=== PATIENT | male | born 1975 | race African-American/Black ===

== ENCOUNTER 2022-12-23 14:18 | Emergency (ER) | payer BC ==
--- OUTSIDE RECORDS SUMMARY | 2022-12-23 14:21 | XMS REPORT | Continuity of Care Document ---
:1975 Author Organization [facility] t Address [facility] [place] [address] Care Team Providers Name Role Phone Alfonso Barker Nataliya Primary Care Physician Pepper Attending Clinician Unavailable ELISE PHILIPPE Attending Clinician Unavailable Elise Curry Attending Clinician Only, Ang Db Test Attending Clinician Unavailable Celso Wilde MD Attending Clinician CELSO WILDE Attending Clinician Unavailable Doctor Unassigned, [place] Attending Clinician Unavailable ALEX CRENSHAW Attending Clinician Unavailable MITALI ALFORD Attending Clinician Unavailable Pepper Admitting Clinician Unavailable ELISE PHILIPPE Admitting Clinician Unavailable Payers Payer Name Policy Type Policy Number Effective Date Expiration Date S [facility] [id number] 2020 00:00:00 Problems Condition Condition Condition Status Onset Resolution Last Treating Co mments Source Name Details Category Date Date Treatment Clinician Date No known No known Disease Unive rs active active ity of problems problems [facility] Allergies, Adverse Reactions, Alerts Allergy Allergy Status Severity Reaction(s) Onset Inactive Treating Comm ents Source Name Type Date Date Clinician Lucius Williamson Active Swelling 2020-0 Univ ers h ty to 11-20 ity of Derived adverse 00:00: [place] reaction 00 Medical s Branch Shrimp Propensi Active Hives Univers ty to 11-20 ity of adverse 00:00: [place] reaction 00 Medical s Branch SHELLFIS DRUG Active Swelling Univer s H INGREDI 11-20 ity of DERIVED 00:00: [place] 00 Medical Branch SHRIMP DRUG Active Hives Univers INGREDI 11-20 ity of 00:00: [place] 00 Medical Branch Social History Social Habit Start Date Stop Date Quantity Comments Source Exposure to Not sure [facility] SARS-CoV-2 (event) Medica l Branch Tobacco use and 2019-11-20 2019-11-20 Never used [facility] exposure 00:00:00 00:00:00 Medical Branch Sex Assigned At [birth year] [facility] 00:00:00 00:00:00 Medical Branch Smoking Status Start Date Stop Date Source Unknown if ever smoked [facility] Never smoker [facility] Medications Ordered Filled Start Stop Current Ordering Indication Dosage Frequency Signature Comments Components Source Medication Medication Date Date Medication? Clinician (SIG) Name Name ibuprofen No 600mg 600 mg, Uni vers (IBU) 12-28 Oral, ity of tablet 600 01:00: 00:09 ONCE, 1 Dionte as mg 00 :00 dose, On Medical 12/27/21 Branch at 1900, FABIANO ibuprofen Yes [id number] 600mg Take 1 Univers 600 mg 12-27 9107 tablet by ity of tablet 00:00: mouth [place] 00 every 6 Medical (six) Branch hours as needed for Pain (scale 4-6). No known [facility] Vital Signs Vital Name Observation Time Observation Value Comments Source Systolic blood 2021-12-27 23:26:00 136 mm[Hg] Univer sity of pressure [facility] Diastolic blood 2021-12-27 23:26:00 87 mm[Hg] Unive rsity of [facility] Heart rate 2021-12-27 23:26:00 102 /min Universi ty [facility] Body temperature 2021-12-27 23:25:00 36.56 Caren Univ ersity of [facility] Respiratory rate 2021-12-27 23:25:00 18 /min [facility] Body height 2021-12-27 23:25:00 190.5 cm [facility] Body weight 2021-12-27 23:25:00 142.883 kg [facility] BMI 2021-12-27 23:25:00 39.37 kg/m2 [facility] Oxygen saturation in 2021-12-27 23:25:00 97 /min [facility] blood by [facility] Pulse oximetry [place] Procedures Procedure Date / Time Performed Performing Clinician Sourc e XR FOOT 3+ VW RIGHT 2021-12-28 00:04:06 Elise Philippe [facility] NOTICE OF PRIVACY 2021-12-27 23:14:15 Doctor Unassigned, No [facility] PRACTICES Name [facility] CONSENT/REFUSAL FOR 2021-12-27 23:14:03 Doctor Unassigned, No [facility] DIAGNOSIS AND Name [facility] TREATMENT Encounters Start End Encounter Admission Attending Care Care Encounter Source Date/Time Date/Time Type Type Clinicians Facility Department ID 2022-04-26 2022-04-26 Outpatient FOG_Fukuda_ AOSM AOSM [id number] Igll 05:57:00 05:57:00 Ethan [id number] Orth ope dic Sports Medicin e 2021-12-27 2021-12-27 Emergency X [facility] ERT [id number] Univers 17:26:00 19:18:00 ELISE soriano [facility] 2021-12-27 2021-12-27 Emergency [facility] [id number] Univers 17:26:00 19:18:00 Elise GRISSOM [id number] i ty of [place] [id number] [place] [id number] [place] [id number] Branch 2021-07-13 2021-07-13 Laboratory Only, Ang Db Test [facility] 1.2.8 [id number] [id number] Univers 17:10:30 17:20:30 Only [facility] [id number] ity of [place] [id number] [place]te as Waqar[place]le[place] [id number] [place] [address] Medical Office Building 2021-07-13 2021-07-13 Outpatient Nancie WILDE [facility] [id number] Univers 17:20:00 17:20:00 CELSO soriano [facility] 2021-07-13 2021-07-13 Orders Doctor VANESSA [id number] Univers 00:00:00 00:00:00 Only Unassigned, INEZ [id number] ity of [place] [facility] [id number] Dionte as [id number] [address] 2020-06-24 2020-06-24 Outpatient Nancie CRENSHAW [facility] [id number] Univers 08:20:00 08:20:00 ALEX soriano [facility] 2019-11-20 2019-11-20 Emergency X [facility] ERT [id number] Univers 17:51:51 19:31:00 MITALI soriano [facility] Results This patient has no known results.
[2022-12-23 15:06] LABS: Urine Blood Trace-intact (Negative); Urine Glucose Negative (Negative); Urine Protein Negative (Negative); Urine pH 6.5 (5.0-7.0)
[2022-12-23 15:17] LABS: Specific Gravity 1.018 (1.005-1.030); Urine Bilirubin NEGATIVE (Negative); Urine Blood Negative (Negative); Urine Clarity Clear (Clear); Urine Color Light-Yellow (Yellow); Urine Glucose NEGATIVE (Negative); Urine Protein NEGATIVE (Negative); Urine Urobilinogen Normal (Normal); Urine pH 6.5 (5.0-7.0)
--- NOTE | 2022-12-23 15:40 | RAD REPORT ---
EXAM DESCRIPTION: CT - Stone Protocol - 12/23/2022 3:28 pm CLINICAL HISTORY: Abdominal pain. Hematuria COMPARISON: None. TECHNIQUE: Computed axial tomography of the abdomen pelvis was obtained without oral or IV contrast. Lack of IV and oral contrast limits evaluation of solid organs, appendix, bowel, and vessels. Machado l reformatted images were obtained and reviewed. All CT scans are performed using dose optimization technique as appropriate and may include automated exposure control or mA/KV adjustment according to patient size. FINDINGS: A renal calculus is not seen. An ureteral calculus is not noted. A bladder calculus is not present. No hydronephrosis The liver, spleen, pancreas and adrenals appear grossly normal There is no evidence of diverticulitis. The appendix appears normal Small to moderate umbilical hernia IMPRESSION: Negative for a genitourinary calculus
--- NOTE | 2022-12-23 15:47 | EDPHYS ---
Physician Documentation [facility] Name: Oneil Alvarado Age: 47 yrs Sex: Male : 1975 Arrival Date: 12/23/2022 Time: 14:21 Bed IW1 Private MD: ED Physician Bennie Chen HPI: 12/23 14:49 This 47 yrs old Black Male presents to ER via Ambulatory with complaints of Possible sb4 Kidney Stone. 14:49 Onset: The symptoms/episode began/occurred 1 month(s) ago. sb4 14:51 The patient presents with urinary symptoms, states his urinary stream has not been as sb4 consistent as usual. Modifying factors: The symptoms are alleviated by nothing, the symptoms are aggravated by nothing. Associated signs and symptoms: Pertinent positives: hematuria, left groin pain, left flank pain. The patient has not experienced similar symptoms in the past. Patient reports he has had blood at the initiation of his urinary stream for about 1 month now associated with a fluctuation in his urine stream rate. He reports some groin pain and flank pain on the left. He denies history of nephrolithiasis or any known history of BPH. . Historical: - Allergies: 14:44 No Known Allergies; ko1 - PMHx: 14:44 None; ko1 - Immunization history:: Adult Immunizations up to date. - Social history:: Smoking status: Patient denies any tobacco usage or history of. ROS: 14:51 Constitutional: Negative for fever, chills, and weight loss, Eyes: Negative for injury, sb4 pain, redness, and discharge, ENT: Negative for injury, pain, and discharge, Cardiovascular: Negative for chest pain, palpitations, and edema, Respiratory: Negative for shortness of breath, cough, wheezing, and pleuritic chest pain, Abdomen/GI: Negative for abdominal pain, nausea, vomiting, diarrhea, and constipation, Back: Negative for injury and pain, MS/Extremity: Negative for injury and deformity, Skin: Negative for injury, rash, and discoloration. 14:51 : Positive for hematuria, difficulty urinating, Negative for urinary frequency, burning with urination, foul smelling urine, penile discharge, testicular pain Exam: 16:13 Constitutional: This is a well developed, well nourished patient who is awake, alert, sb4 and in no acute distress. Head/Face: Normocephalic, atraumatic. Eyes: Extra-ocular motions intact. Periorbital areas with no swelling, redness, or edema. ENT: Mucous membranes moist. Cardiovascular: Regular rate and rhythm with a normal S1 and S2. Respiratory: No increased work of breathing, no retractions or nasal flaring. Abdomen/GI: Soft, non-tender, no distension. Back: No spinal tenderness. No costovertebral tenderness. Full range of motion. Male : Normal genitalia with no discharge or lesions. EVANGELINA Calzada present for exam. Skin: Warm, dry with normal turgor. Normal color with no rashes, no lesions, and no evidence of cellulitis. MS/ Extremity: Pulses equal, no cyanosis. Neurovascular intact. Full, normal range of motion. Vital Signs: 14:42 BP 131 / 78; Pulse 99; Resp 18; Temp 98.3; Pulse Ox 99% ; Weight 136.98 kg; Height 6 ko1 ft. 3 in. (190.50 cm); Pain 2/10; 14:42 Body Mass Index 37.75 (136.98 kg, 190.50 cm) ko1 MDM: 14:47 Patient medically screened. sb4 16:14 Differential diagnosis: UTI, urinary retention, prostatitis, BPH, nephrolithiasis. Data sb4 reviewed: vital signs, nurses notes, lab test result(s), urinalysis, hematuria, radiologic studies, CT scan, and as a result, I will discharge patient. 12/23 14:48 Order name: Urinalysis; Complete Time: 15:18 sb4 12/23 15:06 Order name: Urine Dipstick-Ancillary; Complete Time: 15:08 EDMS 12/23 14:48 Order name: Urine Dipstick-Ancillary (obtain specimen); Complete Time: 15:05 sb4 12/23 15:08 Order name: CT Stone Protocol; Complete Time: 15:41 sb4 Administered Medications: No medications were administered Disposition: 12/24 07:15 Co-signature as Attending Physician, Bennie Chen MD I reviewed the patient's care rn provided by the Advanced Practice Provider and agree with the diagnosis and treatment plan. Disposition Summary: 12/23/22 15:46 Discharge Ordered Location: Home sb4 Problem: an ongoing problem sb4 Symptoms: are unchanged sb4 Condition: Stable sb4 Diagnosis - Enlarged prostate with lower urinary tract symptoms sb4 Followup: sb4 - With: Chong De Dios MD - When: 2 - 3 days - Reason: Further diagnostic work-up, Recheck today's complaints, Re-evaluation by your physician Discharge Instructions: - Discharge Summary Sheet sb4 - Benign Prostatic Hyperplasia sb4 Forms: - Medication Reconciliation Form sb4 - Thank You Letter sb4 - Antibiotic Education sb4 - Prescription Opioid Use sb4 Signatures: Dispatcher [employer] EDMS Bennie Chen MD MD rn Oliver, Kathy, RN RN Delores Donahue PA-C PA-C sb4 Corrections: (The following items were deleted from the chart) 12/23 15:31 14:49 Associated signs and symptoms: Pertinent positives: sb4 sb4 15:31 14:49 This 47 yrs old Black Male presents to ER via Ambulatory with complaints of sb4 Possible Kidney Stone. sb4 16:13 16:13 Constitutional: This is a well developed, well nourished patient who is awake, sb4 alert, and in no acute distress. Head/Face: Normocephalic, atraumatic. Eyes: Extra-ocular motions intact. Periorbital areas with no swelling, redness, or edema. ENT: Mucous membranes moist. Cardiovascular: Regular rate and rhythm with a normal S1 and S2. Respiratory: Lungs have equal breath sounds bilaterally, clear to auscultation and percussion. No rales, rhonchi or wheezes noted. No increased work of breathing, no retractions or nasal flaring. Abdomen/GI: Soft, non-tender, no distension. Back: No spinal tenderness. No costovertebral tenderness. Full range of motion. Male : Normal genitalia with no discharge or lesions. EVANGELINA Calzada present for exam. Skin: Warm, dry with normal turgor. Normal color with no rashes, no lesions, and no evidence of cellulitis. MS/ Extremity: Pulses equal, no cyanosis. Neurovascular intact. Full, normal range of motion. sb4
--- NOTE | 2022-12-23 15:47 | ER ---
Nurse's Notes [facility] Name: Oneil Alvarado Age: 47 yrs Sex: Male : 1975 Arrival Date: 12/23/2022 Time: 14:21 Bed IW1 Private MD: Diagnosis: Enlarged prostate with lower urinary tract symptoms Presentation: 12/23 14:42 Chief complaint: Patient states: I feel like I have a kidney stone, there is less force ko1 when I pee, like the stream is not as strong. Some pain in the left groin and left flank. Coronavirus screen: At this time, the client does not indicate any symptoms associated with coronavirus-19. Ebola Screen: No symptoms or risks identified at this time. Initial Sepsis Screen: Does the patient meet any 2 criteria? No. Patient's initial sepsis screen is negative. Does the patient have a suspected source of infection? No. Patient's initial sepsis screen is negative. Risk Assessment: Do you want to hurt yourself or someone else? Patient reports no desire to harm self or others. Onset of symptoms was December 23, 2022. 14:42 Method Of Arrival: Ambulatory ko1 14:42 Acuity: BELTRAN 4 ko1 Triage Assessment: 14:44 General: Appears in no apparent distress. comfortable, Behavior is calm, cooperative, ko1 appropriate for age. Pain: Complains of pain in left low back. GI: No deficits noted. Historical: - Allergies: 14:44 No Known Allergies; ko1 - PMHx: 14:44 None; ko1 - Immunization history:: Adult Immunizations up to date. - Social history:: Smoking status: Patient denies any tobacco usage or history of. Screenin:00 [facility] ED Fall Risk Assessment (Adult) History of falling in the last 3 months, ko1 including since admission No falls in past 3 months (0 pts) Confusion or Disorientation No (0 pts) Intoxicated or Sedated No (0 pts) Impaired Gait No (0 pts) Mobility Assist Device Used No (0 pt) Altered Elimination No (0 pt) Score/Fall Risk Level 0 - 2 = Low Risk Oriented to surroundings, Maintained a safe environment, Educated pt \T\ family on fall prevention, incl call for assistance when getting out of bed, Assessed \T\ reinforced patient's understanding of fall precautions, Provided non-skid footwear, Hourly rounding (assess needs \T\ fall precautionary measures) done, Used ambulatory aids as needed (educated on \T\ assisted with), Used gait belt as appropriate. Abuse screen: Denies threats or abuse. Denies injuries from another. Nutritional screening: No deficits noted. Tuberculosis screening: No symptoms or risk factors identified. Assessment: 15:00 General: Appears in no apparent distress. comfortable, Behavior is calm, cooperative, ko1 appropriate for age. Pain: Complains of pain in back and left low back and pelvis and left femoral area. Neuro: No deficits noted. Cardiovascular: No deficits noted. Respiratory: No deficits noted. GI: No deficits noted. Bowel sounds present X 4 quads. Abd is soft and non tender X 4 quads. : Reports pain. EENT: No deficits noted. Derm: No deficits noted. Musculoskeletal: No deficits noted. Vital Signs: 14:42 BP 131 / 78; Pulse 99; Resp 18; Temp 98.3; Pulse Ox 99% ; Weight 136.98 kg; Height 6 ko1 ft. 3 in. (190.50 cm); Pain 2/10; 14:42 Body Mass Index 37.75 (136.98 kg, 190.50 cm) ko1 ED Course: 14:21 Patient arrived in ED. as 14:31 Delores Mcdonald PA-C is PHCP. sb4 14:31 Bennie Chen MD is Attending Physician. sb4 14:44 Triage completed. ko1 14:44 Arm band placed on left wrist. Patient placed in waiting room, Patient notified of wait ko1 time. 15:00 Patient has correct armband on for positive identification. ko1 15:00 No provider procedures requiring assistance completed. Patient did not have IV access ko1 during this emergency room visit. 15:05 Urinalysis Sent. ko1 15:30 CT Stone Protocol In Process Unspecified. EDMS 15:45 Chong De Dios MD is Referral Physician. sb4 Administered Medications: No medications were administered Medication: 15:00 VIS not applicable for this client. ko1 Outcome: 15:00 Discharged to home ambulatory. ko1 15:00 Condition: stable 15:00 Discharge instructions given to patient, Instructed on discharge instructions, Demonstrated understanding of instructions. 15:46 Discharge ordered by . sb4 15:58 Patient left the ED. ko1 Signatures: Dispatcher [employer] Geneva Waite Kathy, RN RN ko1 Delores Mcdonald PA-C PA-C sb4
[2022-12-23 16:03] VITALS: BP 131/78; TEMP 98.3; O2SAT 99
== END 2022-12-23 15:58 | disposition home or self-care (01) ==
LOC: ER 14:18
DX: N40.1 Benign prostatic hyperplasia with lower urinary tract symptoms (principal)
CPT/HCPCS: 74176; 76377; 81003; 99283

== ENCOUNTER 2023-07-17 08:08 | Emergency (ER) | payer BC ==
--- OUTSIDE RECORDS SUMMARY | 2023-07-17 08:10 | XMS REPORT | Continuity of Care Document ---
:1975 Author Organization [facility] t Address [address] [place] [address] [place] [address] Care Team Providers Name Role Phone PCP, PATIENT DOES NOT HAVE A Primary Care Physician Unavaila juan a [place] Attending Clinician Unavailable Elise Curry Attending Clinician ELISE PHILIPPE Attending Clinician Unavailable Only, Ang Db Test Attending Clinician Unavailable Celso Wilde MD Attending Clinician CELSO WILDE Attending Clinician Unavailable Doctor Unassigned, [place] Attending Clinician Unavailable ALEX CRENSHAW Attending Clinician Unavailable MITALI ALFORD Attending Clinician Unavailable Pepper Admitting Clinician Unavailable ELISE PHILIPPE Admitting Clinician Unavailable Payers Payer Name Policy Type Policy Number Effective Date Expiration Date S ource Problems Condition Condition Condition Status Onset Resolution Last Treating Co mments Source Name Details Category Date Date Treatment Clinician Date No known No known Disease Unive rs active active ity of problems problems [facility] Allergies, Adverse Reactions, Alerts Allergy Allergy Status Severity Reaction(s) Onset Inactive Treating Comm ents Source Name Type Date Date Clinician Lucius Williamson Active Swelling Univ ers h ty to 11-20 ity [...] Quantity Comments Source Exposure to Not sure [facility] SARS-CoV-2 (event) Medica l Branch Tobacco use and 2019-11-20 2019-11-20 Never used [facility] exposure 00:00:00 00:00:00 Medical Branch Sex Assigned At [birth year] [facility] 00:00:00 00:00:00 Medical Branch Smoking Status Start Date Stop Date Source Unknown if ever smoked [facility] Never smoker [facility] Medications Ordered Filled Start Stop Current Ordering Indication Dosage Frequency Signature Comments Components Source Medication Medication Date Date Medication? Clinician (SIG) Name Name ibuprofen 600mg 600 mg, Uni vers (IBU) 12-28 Oral, ity of tablet 600 01:00: 00:09 ONCE, 1 Dionte as mg 00 :00 dose, On Medical 12/27/21 Branch at 1900, FABIANO ibuprofen Yes [id number] 600mg Take 1 Univers 600 mg 12-27 9107 tablet by ity of tablet 00:00: mouth [place] 00 every 6 Medical (six) Branch hours as needed for Pain (scale 4-6). No known No [facility] Vital Sign[facility] Vital Name Observation Time Observation Value Comments Source Systolic blood 2021-12-27 23:26:00 136 mm[Hg] Univer sity of pressure [facility] Diastolic blood 2021-12-27 23:26:00 87 mm[Hg] Unive rsity of [facility] Heart rate 2021-12-27 23:26:00 102 /min [facility] Body temperature 2021-12-27 23:25:00 36.56 Caren [facility] Respiratory rate 2021-12-27 23:25:00 18 /min [facility] Body height 2021-12-27 23:25:00 190.5 cm [facility] Body weight 2021-12-27 23:25:00 142.883 kg [facility] BMI 2021-12-27 23:25:00 39.37 kg/m2 [facility] Oxygen saturation in 2021-12-27 23:25:00 97 /min [facility] Arterial blood by [facility] Pulse oximetry Branch Procedures Procedure Date / Time Performed Performing Clinician John montalvo XR FOOT 3+ VW RIGHT 2021-12-28 00:04:06 Elise Philippe [facility] NOTICE OF PRIVACY 2021-12-27 23:14:15 Doctor Unassigned, No [facility] PRACTICES Name [facility] [place] CONSENT/REFUSAL FOR 2021-12-27 23:14:03 Doctor Unassigned, No [facility] DIAGNOSIS AND Name [facility] TREATMENT Encounters Start End Encounter Admission Attending Care Care Encounter Source Date/Time Date/Time Type Type Clinicians Facility Department ID 2023-02-23 Outpatient [facility] [id number] Common 09:25:04 [id number] [facility] 2022-04-26 2022-04-26 Outpatient FOG_Fukuda_ AOSM AOSM [id number] [place] 05:57:00 05:57:00 Ethan [id number] Orth ope dic Sports Medicin e 2021-12-27 2021-12-27 Emergency [facility] [id number] Univers 17:26:00 19:18:00 Elise GRISSOM [id number] i ty [facility] [id number] [facility] [id number] [facility] 084 Branch 2021-12-27 2021-12-27 Emergency X DENAE [facility] ERT [id number] Univers 17:26:00 19:18:00 ELISE soriano [facility] 2021-07-13 2021-07-13 Laboratory Only, Ang Db Test [facility] 1.2.8 40.114 [id number] Univers 17:10:30 17:20:30 Only Song, [facility] [id number] ity of [place] [id number] Dionte as Waqar?Blea [id number] Ct [place] [address] Medical Office Building 2021-07-13 2021-07-13 [facility] [id number] Univers 17:20:00 17:20:00 CELSO [facility] 2021-07-13 2021-07-13 Orders Doctor MENDEZ [id number] Univers 00:00:00 00:00:00 Only Unassigned, INEZ [id number] ity of [place] [facility] [id number] Dionte as [id number] [address] 2020-06-24 2020-06-24 [facility] [id number] Univers 08:20:00 08:20:00 ALEX soriano [facility] 2019-11-20 2019-11-20 Emergency [facility] [id number] Univers 17:51:51 19:31:00 MITALI soriano [facility] Results This patient has no known results.
[2023-07-17] MEDS ORDERED: TETRACAINE HCL 0.5% 4ML OPTH ONE (08:49)
[2023-07-17] MEDS ORDERED: FLUORESCEIN SODIUM 1 MG/WRAP ONE (08:52)
--- NOTE | 2023-07-17 09:24 | EDPHYS ---
Physician Documentation [facility] Name: Oneil Alvarado Age: 48 yrs Sex: Male : 1975 Arrival Date: 07/17/2023 Time: 08:08 Bed 15 Private MD: ED Physician Bennie Chen HPI: 07/17 08:30 This 48 yrs old Black Male presents to ER via Ambulatory with complaints of Eye cp Swelling - Right. 08:30 The patient is experiencing redness, swelling. Onset: The symptoms/episode cp began/occurred this morning. Duration: the symptoms are continuous. 08:30 Associated signs and symptoms: Pertinent negatives: ear ache, fever, headache. cp 08:30 Patient wears glasses. Severity of symptoms: in the emergency department the symptoms cp are unchanged despite home interventions. Historical: - Allergies: 08:19 SHELLFISH; rs5 - PMHx: 08:19 None; rs5 - PSHx: 08:19 None; rs5 - Immunization history:: Adult Immunizations up to date. - Social history:: Smoking status: Patient denies any tobacco usage or history of. ROS: 08:35 Constitutional: Negative for body aches, chills, fever, poor PO intake. cp 08:35 Eyes: Positive for discharge, redness, swelling, of the right eye, Negative for vision cp loss. 08:35 ENT: Negative for drainage from ear(s), ear pain, sore throat, difficulty swallowing, difficulty handling secretions. 08:35 Respiratory: Negative for cough, shortness of breath, wheezing. 08:35 Abdomen/GI: Negative for abdominal pain, nausea, vomiting, and diarrhea. 08:35 Skin: Negative for rash. 08:35 Neuro: Negative for altered mental status, dizziness, headache, weakness. 08:35 All other systems are negative. Exam: 08:40 Constitutional: The patient appears in no acute distress, alert, awake, non-toxic, well cp developed, well nourished. 08:40 Head/Face: Normocephalic, atraumatic. cp 08:40 Eyes: Periorbital structures: appear normal, Pupils: equal, round, and reactive to light and accomodation, Extraocular movements: intact throughout, Conjunctiva: chemosis, that is mild, in right eye, injected, in the right eye, Corneas: abrasion, is not appreciated, foreign body, is not appreciated, a fluorescein strip employed to appreciate the findings, Lids and lashes: appear normal, bilaterally, Examination of the other eye reveals no obvious gross abnormality. 08:40 ENT: External ear(s): are unremarkable, Nose: is normal, Mouth: Lips: moist, Oral mucosa: pink and intact, moist, Posterior pharynx: is normal, airway is patent, no erythema, no exudate. 08:40 Neck: ROM/movement: is normal, is supple, without pain, no range of motions limitations, Lymph nodes: no appreciated lymphadenopathy. 08:40 Chest/axilla: Inspection: normal. 08:40 Cardiovascular: Rate: normal. 08:40 Respiratory: the patient does not display signs of respiratory distress, Respirations: normal, no use of accessory muscles, no retractions, labored breathing, is not present, Breath sounds: are clear throughout. 08:40 Skin: no rash present. Vital Signs: 08:19 BP 122 / 89; Pulse 84; Resp 17; Temp 97.8; Pulse Ox 99% on R/A; rs5 08:20 BP 124 / 86; Pulse 78; Resp 17; Temp 97.8; Pulse Ox 99% on R/A; rs5 09:10 BP 126 / 76; Pulse 74; Resp 17; Pulse Ox 99% on R/A; rs5 MDM: 08:24 Patient medically screened. cp 09:23 Data reviewed: vital signs, nurses notes. 09:23 Differential diagnosis: Corneal abrasion of Corneal ulcer of Foreign body in Acute cp iritis of Acute glaucoma in Chemical conjunctivitis in Allergic conjunctivitis in Infectious conjunctivitis in. I considered the following discharge prescriptions or medication management in the emergency department Medications were administered in the Emergency Department. See MAR. Counseling: I had a detailed discussion with the patient and/or guardian regarding the historical points, exam findings, and any diagnostic results supporting the discharge/admit diagnosis, the need for outpatient follow up, an opthalmologist, to return to the emergency department if symptoms worsen or persist or if there are any questions or concerns that arise at home. Response to treatment: the patient's symptoms have mildly improved after treatment, and as a result, I will discharge patient. 07/17 08:29 Order name: Eye Tray; Complete Time: 08:43 07/17 08:29 Order name: Fluoresene Opth strip; Complete Time: 08:43 cp 07/17 08:29 Order name: Visual Acuity; Complete Time: 08:43 cp Administered Medications: 09:46 Drug: Gentamicin Ophthalmic Drops 0.3 % 2 drops Route: Ophthalmic; Site: right eye; rs5 Disposition: 18:24 Co-signature as Attending Physician, Bennie Chen MD I reviewed the patient's care rn provided by the Advanced Practice Provider and agree with the diagnosis and treatment plan. Disposition Summary: 07/17/23 09:24 Discharge Ordered Location: Home cp Problem: new cp Symptoms: have improved cp Condition: Stable cp Diagnosis - Unspecified acute conjunctivitis, right eye cp Followup: cp - With: Maria Teresa Dickens MD - When: 1 - 2 days - Reason: Recheck today's complaints Discharge Instructions: - Discharge Summary Sheet cp - Bacterial Conjunctivitis, Adult cp Forms: - Medication Reconciliation Form cp - Thank You Letter cp - Antibiotic Education cp - Prescription Opioid Use cp - Patient Portal Instructions cp - Leadership Thank You Letter cp Prescriptions: - Gentamicin 0.3 % Ophthalmic Drops - instill 1 drop by OPHTHALMIC route every 4 hours for 7 days; 1 unit; Refills: cp 0, Product Selection Permitted Signatures: Bennie Chen MD MD rn Corby Sands PA PA cp Sotelo, Ricky, RN RN rs5
--- NOTE | 2023-07-17 09:24 | ER ---
Nurse's Notes [facility] Name: Oneil Alvarado Age: 48 yrs Sex: Male : 1975 Arrival Date: 07/17/2023 Time: 08:08 Bed 15 Private MD: Diagnosis: Unspecified acute conjunctivitis, right eye Presentation: 07/17 08:19 Chief complaint: Patient states: right eye swelling, irritation, started this morning. rs5 08:19 Method Of Arrival: Ambulatory rs5 08:19 Coronavirus screen: At this time, the client does not indicate any symptoms associated rs5 with coronavirus-19. Ebola Screen: Patient denies exposure to infectious person. Patient denies travel to an Ebola-affected area in the 21 days before illness onset. Initial Sepsis Screen: Does the patient meet any 2 criteria? No. Patient's initial sepsis screen is negative. Initial Sepsis Screen: Does the patient have a suspected source of infection? Yes: Other: right eye. Risk Assessment: Do you want to hurt yourself or someone else? Patient reports no desire to harm self or others. Onset of symptoms was July 17, 2023 at 06:00. 08:19 Acuity: BELTRAN 4 rs5 Historical: - Allergies: 08:19 SHELLFISH; rs5 - PMHx: 08:19 None; rs5 - PSHx: 08:19 None; rs5 - Immunization history:: Adult Immunizations up to date. - Social history:: Smoking status: Patient denies any tobacco usage or history of. Screenin:20 [facility] ED Fall Risk Assessment (Adult) History of falling in the last 3 months, rs5 including since admission No falls in past 3 months (0 pts) Confusion or Disorientation No (0 pts) Intoxicated or Sedated No (0 pts) Impaired Gait No (0 pts) Mobility Assist Device Used No (0 pt) Altered Elimination No (0 pt) Score/Fall Risk Level 0 - 2 = Low Risk Oriented to surroundings, Maintained a safe environment. 08:20 Abuse screen: Denies threats or abuse. Nutritional screening: No deficits noted. rs5 Tuberculosis screening: No symptoms or risk factors identified. Assessment: 08:20 General: Appears in no apparent distress. comfortable, Behavior is calm, cooperative. rs5 Pain: Denies pain. Neuro: Level of Consciousness is awake, alert, obeys commands, Oriented to person, place, time, situation. Cardiovascular: Rhythm is regular. Respiratory: Airway is patent Respiratory effort is even, unlabored, Respiratory pattern is regular, symmetrical. GI: Abdomen is round non-distended. : No signs and/or symptoms were reported regarding the genitourinary system. EENT: Eyes are tearing on inner aspect of conjuctiva of right eye and outer aspect of conjuctiva of right eye Pt reports red eye irritation. Redness noted to sclera of right eye. Derm: Skin is dry, Skin is normal, Skin temperature is warm. Musculoskeletal: Range of motion: intact in all extremities. 09:10 Reassessment: Patient and/or family updated on plan of care and expected duration. Pain rs5 level reassessed. Patient is alert, oriented x 3, equal unlabored respirations, skin warm/dry/pink. 09:34 General: Provider at bedside. rs5 Vital Signs: 08:19 BP 122 / 89; Pulse 84; Resp 17; Temp 97.8; Pulse Ox 99% on R/A; rs5 08:20 BP 124 / 86; Pulse 78; Resp 17; Temp 97.8; Pulse Ox 99% on R/A; rs5 09:10 BP 126 / 76; Pulse 74; Resp 17; Pulse Ox 99% on R/A; rs5 ED Course: 08:11 Patient arrived in ED. mg5 08:20 Patient has correct armband on for positive identification. Placed in gown. Bed in low rs5 position. Call light in reach. Side rails up X 1. Adult w/ patient. 08:20 No provider procedures requiring assistance completed. rs5 08:22 Prashant Orellana, EVANGELINA is Primary Nurse. rs5 08:24 Corby Sands PA is PHCP. cp 08:24 Bennie Chen MD is Attending Physician. cp 08:25 Triage completed. rs5 09:23 Maria Teresa Dickens MD is Referral Physician. cp Administered Medications: 09:46 Drug: Gentamicin Ophthalmic Drops 0.3 % 2 drops Route: Ophthalmic; Site: right eye; rs5 Medication: 09:48 VIS not applicable for this client. rs5 Outcome: 09:24 Discharge ordered by . cp 09:48 Discharged to home ambulatory. rs5 09:48 Condition: stable 09:48 Condition: stable 09:48 Discharge instructions given to patient, Instructed on discharge instructions, follow up and referral plans. medication usage, Demonstrated understanding of instructions, follow-up care, medications, Prescriptions given X 1. 09:51 Patient left the ED. rs5 Signatures: Corby Sands PA PA cp Sotelo, Ricky RN RN rs5 Whiteside, Phyllis mg5 Corrections: (The following items were deleted from the chart) 08:33 08:19 General: Appears in no apparent distress. comfortable, Behavior is calm, rs5 cooperative, rs5 08:33 08:19 Pain: Denies pain. rs5 rs5 08:33 08:19 EENT: Eyes are tearing on outer aspect of conjuctiva of right eye and inner rs5 aspect of conjuctiva of right eye Pt reports right eye irritation. . rs5 08:33 08:19 Neuro: Level of Consciousness is awake, alert, obeys commands, Oriented to rs5 person, place, time, situation, rs5 08:33 08:19 Cardiovascular: Rhythm is regular rs5 rs5 08:33 08:19 Respiratory: Airway is patent Respiratory effort is even, unlabored, Respiratory rs5 pattern is regular, symmetrical, rs5 08:33 08:19 GI: Abdomen is round non-distended, rs5 rs5 08:33 08:19 : No signs and/or symptoms were reported regarding the genitourinary system. rs5rs5 08:33 08:19 Derm: Skin is dry, Skin is normal, Skin temperature is warm rs5 rs5 08:33 08:19 Musculoskeletal: Range of motion: intact in all extremities, rs5 rs5 08:33 08:30 General: Appears in no apparent distress. comfortable, Behavior is calm, rs5 cooperative, rs5 :33 08:30 Pain: Denies pain. rs5 rs5 08:33 08:30 Neuro: Level of Consciousness is awake, alert, obeys commands, Oriented to rs5 person, place, time, situation, rs5 :33 08:30 Cardiovascular: Rhythm is regular rs5 rs5 08:33 08:30 Respiratory: Airway is patent Respiratory effort is even, unlabored, Respiratory rs5 pattern is regular, symmetrical, rs5 08:33 08:30 GI: Abdomen is round non-distended, rs5 rs5 08:33 08:30 : No signs and/or symptoms were reported regarding the genitourinary system. [id number] 08:33 08:30 EENT: Eyes are tearing on inner aspect of conjuctiva of right eye and outer rs5 aspect of conjuctiva of right eye Pt reports red eye irritation. Redness noted to sclera of right eye. rs5 08: 08:30 Derm: Skin is dry, Skin is normal, Skin temperature is warm rs5 rs5 08: 08:30 Musculoskeletal: Range of motion: intact in all extremities, rs5 rs5
[2023-07-17] MEDS ORDERED: GENTAMICIN 0.3% OPTH DROP 5ML ONE (09:51)
[2023-07-17 10:06] VITALS: TEMP 97.8; O2SAT 99
[2023-07-17 10:08] VITALS: BP 126/76
== END 2023-07-17 09:51 | disposition home or self-care (01) ==
LOC: ER 08:08
DX: H10.31 Unspecified acute conjunctivitis, right eye (principal)
CPT/HCPCS: 99283